=== PATIENT | male | born 1995 ===

== ENCOUNTER 2021-05-03 16:50 | Emergency (ER) | payer OTHER ==
[~2021-05-03] VITALS: Ht 177.8 cm; Wt 77.1 kg
[2021-05-03] MEDS ORDERED: CEFAZOLIN 1 G VIAL IM ONE (18:15)
[2021-05-03] MEDS ORDERED: LIDOCAINE HCL 1% 20 ML VIAL IJ ONE (18:15)
[2021-05-03] MEDS ORDERED: TDAP DIPH,PERTUSS,TET VAC/PF 0.5 ML DISP.SYRIN IM ONE ×2 (18:15→18:42)
[2021-05-03] MEDS ORDERED: AMOX-430 PO (18:37)
[2021-05-03] MEDS ORDERED: IBUP-1955 PO (18:37)
[2021-05-03] MEDS ORDERED: HYDR-4209 PO (18:37)
[2021-05-03] MEDS ORDERED: CEFAZOLIN 1 G VIAL ONE (18:42)
--- NOTE | 2021-05-03 19:11 | NUR ---
PT WAS EVALUATED BY DR MORRIS. PT WAS MEDICATED ACCORDING TO ER MD ORDERS. PT TOLERATED TO MEDICATION WITHOUT COMPLICATION, RIGHT 1st TOE WOUND WAS CLEANED WITH NS 0.9% AND BETADINE . GAUZE DRESSING WAS APPLIED ACCORDING TO DR MORRIS ORDERS. PT WAS D/C'd TO HOME. D/C INSTRUCTIONS GIVEN TO THE PT BY DR MORRIS.
[2021-05-03 19:14] VITALS: BP 135/78
== END 2021-05-03 19:15 | disposition home or self-care (01) ==
LOC: ER 16:56
DX: S92.421A Displaced fracture of distal phalanx of right great toe, initial encounter for closed fracture (principal); W20.8XXA Other cause of strike by thrown, projected or falling object, initial encounter; Y92.039 Unspecified place in apartment as the place of occurrence of the external cause; S90.111A Contusion of right great toe without damage to nail, initial encounter
CPT/HCPCS: 73660; 90471; 90715; 96372; 99283; J0690; J3490; A4217